=== PATIENT | female | born 1990 | race Caucasian/White ===

== ENCOUNTER 2022-03-15 11:50 | Day surgery (SDC) | payer OTHER ==
[~2022-03-15] VITALS: Ht 162.6 cm; Wt 77.1 kg
[~2022-03-15 11:50] MED LIST: AZIT500 PO; CODGUAEL PO; CRUTCH4 USE; IBUP800 PO; LAMO100 PO; MULVITMINE PO; YAZ
--- NOTE | 2022-03-15 12:35 | NUR ---
NO URINE TEST REQUIRED 2/2 NEGATIVE SERUM RESULT 03/09, AND HX TUBAL LIGATION. OKAY PER DR REGALADO.
--- NOTE | 2022-03-15 12:57 | NUR ---
PT PREPARED FOR SURGERY AND AMBULATORY IN DAY SURGERY. Surgical site prepped with 2% Chlorhexidine cloth wipe. History, Chart, Medications and Allergies reviewed before start of procedure.Pre-Op teaching done. Pt verbalizes understanding. Lungs clear T/O to Auscultation. Patient reports completing Chlorhexadine shower X2 prior to admission to hospital.
--- NOTE | 2022-03-15 18:30 | NUR ---
ARRIVAL TO UNIT TRANSFERED TO HOSPITAL BED FROM [facility]. ALERT, ORIENTED, BUT DROWSY. ABD SOFT w/ LAP SITES x 4 w/ WOUND GLUE; NO DRNG. LUNGS CLEAR. DENIES N/V. REPORTS PAIN TOLERABLE. 06/11. NO VAGINAL BLEEDING NOTED.
[2022-03-16 09:42] LABS: BASOPHILS ABSOLUTE AUTO 0.02 K/mm3 (0.00-0.23); BASOPHILS PERCENT AUTO 0 % (0-2); EOSINOPHILS ABSOLUTE AUTO 0.01 K/mm3 (0.00-0.68); EOSINOPHILS PERCENT AUTO 0 % (0-6); Hematocrit 36.3 % (33.0-51.0); Hemoglobin 12.3 g/dL (11.5-16.0); IMMATURE GRAN ABSOLUTE AUTO 0.03 K/mm3 (0.00-0.10); IMMATURE GRAN PERCENT AUTO 0 % (0-1); LYMPHOCYTES ABSOLUTE AUTO 2.46 K/mm3 (0.84-5.20); LYMPHOCYTES PERCENT AUTO 31 % (21-46); MONOCYTES ABSOLUTE AUTO 0.68 K/mm3 (0.16-1.47); MONOCYTES PERCENT AUTO 9 % (4-13); Mean Corpuscular HGB 29.1 pg (26.0-34.0); Mean Corpuscular HGB Conc 33.9 g/dL (31.5-36.5); Mean Corpuscular Volume 86 fL (80-100); Mean Platelet Volume 10.1 fL (9.1-12.4); NEUTROPHILS ABSOLUTE AUTO 4.83 K/mm3 (1.96-9.15); NEUTROPHILS PERCENT AUTO 60 % (41-73); Platelet Count 192 K/mm3 (150-400); RDW Coefficient Variation 13.6 % (11.7-14.2); RDW Standard Deviation 43.2 fL (35.1-46.3); Red Blood Cell Count 4.22 M/mm3 (3.80-5.20); White Blood Cell Count 8.03 K/mm3 (4.00-11.30)
== END 2022-03-16 09:30 | disposition home or self-care (01) ==
LOC: ORSCMMR 11:50 → ORD 13:30 → BC 18:10 → ORSCMMR 03-16 09:30
PROVIDERS: Obstetrics & Gynecology
PROC: 0UT94ZZ Resection of Uterus, Percutaneous Endoscopic Approach (ICD-10-PCS; principal; 2022-03-15 13:00)
PROC: 0UT74ZZ Resection of Bilateral Fallopian Tubes, Percutaneous Endoscopic Approach (ICD-10-PCS; principal; 2022-03-15 13:00)
DX: N92.0 Excessive and frequent menstruation with regular cycle (principal); N94.6 Dysmenorrhea, unspecified; N94.10 Unspecified dyspareunia; N80.9 Endometriosis, unspecified; G40.909 Epilepsy, unspecified, not intractable, without status epilepticus; R10.2 Pelvic and perineal pain; Z79.899 Other long term (current) drug therapy
CPT/HCPCS: 58571; S2900; 36415; 85025; 86850; 86900; 86901; 88305; 88307; A9270; J0690; J1100; J1170; J1885; J2250; J2405; J2704; J3010; J7120